=== PATIENT | male | born 1995 | race Caucasian/White ===

== ENCOUNTER 2023-09-17 06:04 | Day surgery (SDC) | payer BC, SELFPAY ==
[2023-09-17] VITALS (10 sets, daily range): BP systolic 109–143; BP diastolic 68–102; BMI 33.6
[2023-09-17 06:46] LABS: Glucose - Point of Care 177 mg/dl (70-99)
[2023-09-17] MEDS: NORMOSOL-R 1000 IV (06:46)
[2023-09-17 09:01] LABS: Glucose - Point of Care 128 mg/dl (70-99)
--- NOTE | 2023-09-17 09:25 | SUR.PHASEI ---
Received report from Marlene Delgado RN and assumed care of pt
--- NOTE | 2023-09-17 09:45 | SUR.PHASEI ---
Dr. Morris notified pt with history of HARIS, pt pulse ox greater than 92% on room air. Dr. Morris at pt bedside, pt stable for discharge to [facility].
== END 2023-09-17 10:34 | disposition home or self-care (01) ==
LOC: SDS 06:04
PROVIDERS: ATTENDING PHYSICIAN Otolaryngology; FAMILY PHYSICIAN Family Medicine
DX: J35.01 Chronic tonsillitis (principal); R06.83 Snoring
CPT/HCPCS: 42826; 88304; 82962